=== PATIENT | male | born 1965 | race Caucasian/White ===

== ENCOUNTER 2017-09-15 19:42 | Emergency (ER) | payer SELFPAY ==
[2017-09-15 20:03] VITALS: BMI 29.0
[2017-09-15] MEDS ORDERED: ANTIVERT TAB 25 MG PO ONE (20:41)
[2017-09-15] MEDS ORDERED: ZOFRAN TAB 4 MG PO ONE (20:42)
[2017-09-15] MEDS ORDERED: ZOFRAN TAB 4 MG ONE (20:43)
[2017-09-15] MEDS ORDERED: ANTIVERT TAB 25 MG ONE (20:44)
--- NOTE | 2017-09-15 20:45 | DR.GENAD ---
HPI - PCP Primary Care Physician: JENI JUNIOR - Complaint/Symptoms Chief Complaint:: DIZZY O/S 1500, WHILE EATING. WORST O/S 1800. NAUSEA EARLIER AND DIARRHEA THIS AM. "2ND TIME THIS HAS HAPPENED TO ME. 1ST TIME WAS [place]AST[place]." - Source History Provided: Patient - Mode of Arrival Mode of Arrival: Wheelchair - Timing Onset of Chief Complaint: 09/15/17 PMH - PMH Past Medical History: Yes Past Medical History: Arthritis, GERD, Kidney Stones Past Surgical History: Yes Surgical History: Tonsillectomy, Lithotripsy - Family History History of Family Medical Conditions: No - Social History Type of Tobacco Use: Cigarettes Alcohol Use: None Do you use any recreational Drugs:: Yes (THC) Lives With: Spouse Lives Where: Home - infectious screening Have you traveled outside the country in the last 6 months?: No Isolation: Standard PE - Vital Signs Vitals: Temperature 98.1 F Pulse Rate [Left] 57 Pulse Rate 59 Respiratory Rate 18 Blood Pressure [Left Arm] 128/71 Blood Pressure 144/74 O2 Sat by Pulse Oximetry 98 ROR - Labs Reviewed Result Diagrams: 09/15/17 20:49 09/15/17 20:49 - Diagnosis Discharge Problem: Dizziness, Vertigo - Discharge Plan Condition: Stable Prescriptions: Meclizine HCl 25 mg PO TID PRN #30 tab PRN Reason: Dizziness Ondansetron [Zofran ODT 8 mg] 8 mg PO Q8H PRN #12 tab PRN Reason: Nausea/Vomiting - Follow ups/Referrals Follow ups/Referrals: JENI POSADAS [Primary Care Provider] - 3 days - Instructions Instructions: Dizziness, [id number], Vertigo Additional Instructions: RETURN TO ED IF WORSE
[2017-09-15 20:47] VITALS: BP 128/71
[2017-09-15 21:04] LABS: BASOPHILS # (AUTO) 0.1 X10^3/uL (0.0-0.1); BASOPHILS % (AUTO) 0.6 % (0.2-1.0); EOSINOPHILS # (AUTO) 0.1 x10^3/uL (0.0-0.2); EOSINOPHILS % (AUTO) 0.9 % (0.9-2.9); HEMATOCRIT 47.8 % (42.0-54.0); HEMOGLOBIN 16.9 g/dL (13.5-18.0); LYMPHOCYTES # (AUTO) 1.6 X10^3/uL (1.3-2.9); LYMPHOCYTES % (AUTO) 15.8 % (21.0-51.0); MEAN CORPUSCULAR HEMOGLOBIN 32.2 pg (27.0-34.0); MEAN CORPUSCULAR HGB CONC 35.3 g/dL (33.0-35.0); MEAN CORPUSCULAR VOLUME 91.3 fL (80.0-100.0); MEAN PLATELET VOLUME 8.6 fL (7.4-11.0); MONOCYTES # (AUTO) 0.6 x10^3/uL (0.3-0.8); MONOCYTES % (AUTO) 5.8 % (0.0-13.0); NEUTROPHILS # (AUTO) 7.7 x10^3/uL (2.2-4.8); NEUTROPHILS % (AUTO) 76.9 % (42.0-75.0); PLATELET COUNT 229 X10^3/uL (150.0-450.0); RED BLOOD COUNT 5.24 X10^6/uL (4.7-6.0); RED CELL DISTRIBUTION WIDTH 13.9 % (11.6-16.5)
[2017-09-15 21:14] LABS: ALANINE AMINOTRANSFERASE 16 Units/L (12-78); ALBUMIN 4.4 g/dL (3.4-5.0); ALKALINE PHOSPHATASE 98 Units/L (46-116); ASPARTATE AMINO TRANSFERASE 15 Units/L (15-37); BLOOD UREA NITROGEN 24 mg/dL (7-18); CALCIUM 9.1 mg/dL (8.5-10.1); CARBON DIOXIDE 27.3 mmol/L (21-32); CHLORIDE 101 mmol/L (98-107); COR NA(FOR HYPERGLY) 138 mmol/L (136-145); CREATININE 0.98 mg/dL (0.70-1.30); SODIUM 137 mmol/L (136-145); TOTAL PROTEIN 7.8 g/dL (6.4-8.2); eGFR BLACK RACES > 60 (>60); eGFR NON BLACK RACES > 60 (>60)
--- NOTE | 2017-09-15 21:41 | CT ---
Indication: Mental status changes Exam: CT head without contrast Technique: Routine transaxial images were obtained the brain without contrast. Findings: The ventricles are normal. No intracranial hemorrhage or edema is seen. There is no extra-a xial fluid collection or mass. The bones are intact. Impression: No abnormality seen. Reported By:
== END 2017-09-15 21:43 | disposition home or self-care (01) ==
LOC: ER 19:55
DX: R42 Dizziness and giddiness (principal)
CPT/HCPCS: 36415; 70450; 80053; 85025; 99282; S0181